=== PATIENT | male | born 1980 | race Caucasian/White ===

== ENCOUNTER 2021-02-17 04:43 | Emergency (ER) | payer BC ==
[2021-02-17 04:52] VITALS: RESP 20
[2021-02-17] MEDS ORDERED: methylPREDNISolone SOD SUCCI 125 MG/2 ML VIAL IM STA (05:18)
[2021-02-17] MEDS ORDERED: ORPHENADRINE 30 MG/ML 2 ML VIAL IM STA (05:18)
--- NOTE | 2021-02-17 05:22 | ED ---
Extremity Problem HPI - General Chief complaint: Extremity Problem,Nontraumatic Stated complaint: L Leg Pain Time Seen by Provider: 02/17/21 04:54 Source: patient Mode of arrival: ambulatory - History of Present Illness MD Complaint: extremity pain -: days(s) Location: left, lower extremity History of Same: No Radiation: none Quality: burning Consistency: constant Improves with: nothing Worsens with: other (Sitting) Associated Symptoms: denies other symptoms - Related Data Previous Rx's Medication Instructions Recorded Methocarbamol [Robaxin-750] 750 mg PO TID PRN #30 tablet 02/17/21 predniSONE 60 mg PO DAILY #30 tab 02/17/21 Allergies Allergy/AdvReac Type Severity Reaction Status Date / Time No Known Allergies Allergy Verified 02/17/21 04:50 Review of Systems ROS Statement: Those systems with pertinent positive or pertinent negative responses have been documented in the HPI. ROS Other: All systems not noted in ROS Statement are negative. Constitutional: Denies: fever, chills Respiratory: Denies: cough, dyspnea Cardiovascular: Denies: chest pain, palpitations Gastrointestinal: Denies: abdominal pain, vomiting, diarrhea Genitourinary: Denies: dysuria, frequency, hematuria, testicular pain Musculoskeletal: Denies: back pain Skin: Denies: rash Neurological: Denies: weakness, numbness, paresthesias Past Medical History Past Medical History: Hypertension Additional Past Medical History / Comment(s): back spasms Past Psychological History: No Psychological Hx Reported Smoking Status: Never smoker Past Alcohol Use History: Occasional Past Drug Use History: None Reported General Exam General appearance: alert, in no apparent distress Head exam: Present: atraumatic, normocephalic Respiratory exam: Present: normal lung sounds bilaterally. Absent: respiratory distress, wheezes, rales, rhonchi, stridor Cardiovascular Exam: Present: regular rate, normal rhythm, normal heart sounds. Absent: systolic murmur, diastolic murmur, rubs, gallop GI/Abdominal exam: Present: soft. Absent: distended, tenderness, guarding, pulsatile mass Extremities exam: Present: normal inspection, normal capillary refill, other (There is a positive straight leg raise on the left). Absent: pedal edema, calf tenderness Back exam: Present: normal inspection. Absent: paraspinal tenderness, vertebral tenderness Neurological exam: Absent: motor sensory deficit Skin exam: Present: warm, dry, intact, normal color. Absent: rash Course Vital Signs 02/17/21 04:50 Temperature 97.8 F Pulse Rate 101 H Respiratory 20 Rate Blood Pressure 143/84 O2 Sat by Pulse 96 Oximetry Disposition Clinical Impression: Lumbar radicular pain Disposition: HOME SELF-CARE Condition: Good Instructions (If sedation given, give patient instructions): Lumbar Radiculopathy (ED) Prescriptions: predniSONE 60 mg PO DAILY #30 tab Methocarbamol [Robaxin-750] 750 mg PO TID PRN #30 tablet PRN Reason: pain Is patient prescribed a controlled substance at d/c from ED?: No Referrals: Ben Nance MD [Primary Care Provider] - 1-2 days
[2021-02-17 06:19] VITALS: BP 98/69; PULSE 88; TEMP 97.7
== END 2021-02-17 06:32 | disposition home or self-care (01) ==
LOC: EC 04:43
DX: M54.16 Radiculopathy, lumbar region (principal); I10 Essential (primary) hypertension
CPT/HCPCS: 99283; 96372 ×2; J2360; J2930

== ENCOUNTER → 2023-02-15 | Outpatient (CLI) | payer BC ==
[2023-02-15 20:19] LABS: Basophils # (A) 0.09 X 10*3/uL (0.00-0.10); Basophils % (A) 0.9 %; Eosinophils # (A) 0.26 X 10*3/uL (0.04-0.35); Eosinophils % (A) 2.7 %; HCT 47.2 % (39.6-50.0); Immature Grans, Automated 0.4 %; Lymphocytes # (A) 3.39 X 10*3/uL (0.90-5.00); Lymphocytes % (A) 35.5 %; MCH 29.4 pg (27.0-32.0); MCHC 33.9 g/dL (32.0-37.0); MCV 86.6 fL (80.0-97.0); Mean Platelet Volume 10.1 fL (9.5-12.2); Monocytes # (A) 0.84 X 10*3/uL (0.20-1.00); Monocytes % (A) 8.8 %; NRBC Per 100 WBC 0 /100 WBCS (0.0-0.0); Neutrophils # (A) 4.94 X 10*3/uL (1.80-7.70); Neutrophils % (A) 51.7 %; Platelet Count 292 X 10*3/uL (140-440); RBC 5.45 X 10*6/uL (4.40-5.60); RDW 12.8 % (11.5-14.5); WBC 9.56 X 10*3/uL (4.50-10.00)
[2023-02-15 21:53] LABS: ALT 47 U/L (10-49); AST 21 U/L (14-35); African American GFR (CKD) 88.3 (60.0-200.0); Albumin 4.7 g/dL (3.8-4.9); Albumin/Globulin Ratio 2.01 (1.60-3.17); Alkaline Phosphatase 73 U/L (41-126); BUN/Creat Ratio 11.78 Ratio (12.00-20.00); Bilirubin, Conjugated <0.20 mg/dL (0.20-0.40); Blood Urea Nitrogen 13.9 mg/dL (9.0-27.0); Calcium 10.1 mg/dL (8.7-10.3); Carbon Dioxide 24.7 mmol/L (20.0-27.5); Chloride 105 mmol/L (96-109); Globulin 2.4 g/dL (1.6-3.3); Glucose 85 mg/dL (70-110); Non-African American GFR(CKD) 76.2 (60.0-200.0); Potassium 4.2 mmol/L (3.5-5.5); Sodium 142 mmol/L (135-145); Total Protein 7.1 g/dL (6.2-8.2)
[2023-02-15 21:55] LABS: Hepatitis B Surface AB- Quant 5.8 mIU/mL; Hepatitis B Surface Antibody Nonreactive (Nonreactive)
[2023-02-15 22:04] LABS: Hepatitis B Surface Antigen Nonreactive (Nonreactive); Hepatitis C IgG Antibody Nonreactive (Nonreactive)
== END | disposition home or self-care (01) ==
LOC: LABWHC1 14:27
PROVIDERS: ATTEND Dermatology
DX: L40.0 Psoriasis vulgaris (principal); L40.59 Other psoriatic arthropathy
CPT/HCPCS: 36415; 80048; 80076; 85025; 86480; 86704; 86706; 86803; 87340

== ENCOUNTER → 2024-05-17 | Outpatient (CLI) | payer BC | END | disposition home or self-care (01) | LOC: LABWHC1 13:38 | PROVIDERS: ATTEND Dermatology | DX: L40.0 Psoriasis vulgaris (principal); L40.59 Other psoriatic arthropathy | CPT/HCPCS: 36415; 86480 ==